=== PATIENT | female | born 1965 | race Caucasian/White ===

== ENCOUNTER 2024-03-17 14:39 | Emergency (ER) | payer OTHER ==
[2024-03-17 14:52] VITALS: BMI 33.6
[2024-03-17] MEDS ORDERED: METOCLOPRAMIDE HCL INJECTION 10 MG/2 ML VIAL ONE (16:04)
[2024-03-17] MEDS ORDERED: ACETAMINOPHEN INJECTION 100 ML IVPB ONE (16:04)
[2024-03-17] MEDS ORDERED: TENECTEplase 50 MG VIAL IVPUSH ONE (16:10)
[2024-03-17 16:11] LABS: INR 0.97 (0.83-1.09); PROTHROMBIN TIME (PATIENT) 11.2 SEC (9.7-13.0)
[2024-03-17 16:13] LABS: ACTIVATED PTT 33.8 SECONDS (25.2-36.5)
[2024-03-17 16:15] LABS: CHLORIDE 105 mmol/L (98-107); POTASSIUM 4.3 mmol/L (3.5-5.1); SODIUM 136 mmol/L (136-145)
[2024-03-17 16:17] LABS: ANION GAP 5 mmol/L (4-13); CALCIUM 9.1 mg/dL (8.5-10.1); CO2 26 mmol/L (21-32)
[2024-03-17] MEDS: TENECTEplase 50 MG VIAL IVPUSH ONE (16:17)
[2024-03-17 16:18] LABS: BLOOD UREA NITROGEN 21.3 mg/dL (7-18)
[2024-03-17 16:19] LABS: GLUCOSE,RANDOM 96 mg/dL (74-106)
[2024-03-17 16:21] LABS: SGOT/AST 41 U/L (15-37); SGPT/ALT 83 U/L (13-61)
[2024-03-17 16:22] LABS: CHOLESTEROL 153 mg/dL (50-200); TOT PROT 7.8 g/dl (6.4-8.2)
[2024-03-17 16:23] LABS: BILIRUBIN,TOTAL 0.5 mg/dL (0.2-1); HDL CHOLESTEROL 42 mg/dL (40-60); LDL CHOLESTEROL (ONLY SJRH) 97 mg/dL (5-100)
[2024-03-17 16:25] LABS: ALK PHOS 76 U/L (45-117)
[2024-03-17] MEDS: METOCLOPRAMIDE HCL INJECTION 10 MG/2 ML VIAL IVPB ONE (16:30)
[2024-03-17] MEDS: ACETAMINOPHEN 1000 MG/100 ML BAG IVPB ONE (16:30)
[2024-03-17] MEDS: SODIUM CHLORIDE 0.9% 500 ML INFUS.BAG IV ONE (16:30)
[2024-03-17 16:53] VITALS: TEMP 98.8
[2024-03-17 18:15] VITALS: BP 128/75; PULSE 87; RESP 17
[2024-03-17 18:26] LABS: URINE APPEARANCE CLEAR; URINE BILIRUBIN NEGATIVE (NEGATIVE); URINE COLOR YELLOW; URINE GLUCOSE (UA) NEGATIVE (NEGATIVE); URINE KETONE NEGATIVE (NEGATIVE); URINE LEUK ESTERASE NEGATIVE (NEGATIVE); URINE NITRITE NEGATIVE (NEGATIVE); URINE PROTEIN NEGATIVE (NEGATIVE); URINE UROBILINOGEN 0.2 mg/dL (0.2-1.0)
== END 2024-03-17 18:20 | disposition short-term general hospital (02) ==
LOC: JER 14:39
DX: I63.431 Cerebral infarction due to embolism of right posterior cerebral artery (principal); R00.2 Palpitations; R47.81 Slurred speech; R53.1 Weakness; Z20.822 Contact with and (suspected) exposure to COVID-19
CPT/HCPCS: 0241U-QW; 70450-TC; 70496-TC; 70498-TC; 80053; 80061; 81003; 82550; 82962; 83036; 84484; 85610; 85730; 86850; 86900; 86901; 93005; 93010; 99285-25; J0131; J3101